=== PATIENT | female | born 1975 | race Caucasian/White ===

== ENCOUNTER 2020-08-30 08:50 | Emergency (ER) | payer OTHER, SELFPAY ==
[2020-08-30 08:54] VITALS: BP 145/93; PULSE 85; RESP 18; TEMP 37.1; O2SAT 96; BMI 39.4
--- NOTE | 2020-08-30 09:29 | W.ED.ABDPA2 ---
HPI - Abdominal Pain General: Chief Complaint: Abdominal Pain Stated Complaint: RIGHT SIDE PAIN Time Seen by Provider: 08/30/20 09:00 History of Present Illness: HPI narrative: Patient is a 45-year-old female who comes to the ED with abdominal pain. Symptoms started approximately 1 month ago. Patient says she is seen her primary care physician about abdominal pain and they scheduled her for an outpatient pelvic ultrasound and PCP was concerned about either appendix or ovary cause. Patient says her abdominal pain is located in the right lower quadrant of her abdomen. She says that for the past month its been episodic pain and she says it hurts worse at the end of the day. Last night she had more severe abdominal pain, but says now the pain has been constant ever since. She rates her pain currently a 5 out of 5. Patient says she took ibuprofen this morning before coming to the ED to help with her pain. She does endorse some nausea but has not had any episodes of emesis. She is having normal p.o. food and fluid intake and states that food does not cause any worsening of symptoms. Denies any fever, chills, cough, chest pain, shortness of breath, emesis, constipation, diarrhea, blood in stool, dysuria or hematuria. Associated Symptoms: Reports nausea; Denies chills, constipation, diarrhea, dysuria, fever(s), hematochezia, hematuria and vomiting Review of Systems Const: Denies: fever(s), chills or fatigue Eyes: Denies: change in vision or eye discomfort ENMT: Denies: throat pain, odynophagia, nasal discharge or nasal congestion Card: Denies: chest pain, palpitations, edema, swelling of feet/ankles, dyspnea on exertion or orthopnea Resp: Denies: dyspnea, productive cough or non-productive cough GI: Reports: abdominal pain and nausea; Denies: vomiting, diarrhea, constipation or hematochezia : Denies: flank pain, dysuria or hematuria Musc: Denies: neck pain, back pain or extremity swelling Skin/Breast: Denies: rash or new lesions Neuro: Denies: headache(s), numbness in extremities or weakness in extremities Physical Exam Const: COMMON NORMALS: no acute distress, patient oriented x3, healthy appearing and alert GENERAL APPEARANCE: cooperative and comfortable HENMT: COMMON NORMALS: normocephalic HEAD & SCALP: normocephalic MOUTH: Normal oral and palatal mucosa present THROAT: posterior oropharynx normal and uvula midline Neck/C-Spine: COMMON NORMALS: supple GENERAL: Yes normal visual inspection Resp: COMMON NORMALS: normal respiratory effort, No retractions, No use of accessory muscles and clear to auscultation bilaterally AUSCULTATION: clear to auscultation bilaterally Cardio: COMMON NORMALS: regular rate, regular rhythm, S1 normal heart sound present, S2 normal heart sound present, No gallops present (Cardio), No clicks present (Cardio), No murmurs present (Cardio) and Peripheral pulses 2+ throughout RATE: regular rate RHYTHM: regular rhythm HEART SOUNDS: S1 normal heart sound present and S2 normal heart sound present PERIPHERAL PULSES: Peripheral pulses 2+ throughout GI: COMMON NORMALS: Normal to inspection, nondistended, normoactive bowel sounds present, Soft to palpation and no masses PALPATION: Yes Soft to palpation and Yes Tenderness to palpation present (GI) Details: RLQ : COMMON NORMALS: Yes no CVA tenderness BLADDER/KIDNEY EXAM: Yes no CVA tenderness Back/Pelvis: COMMON NORMALS: no CVA tenderness Extremity: COMMON NORMALS: normal to inspection Neuro: COMMON NORMALS: patient oriented x3 SENSORIUM/ORIENTATION: Yes alert Skin: GENERAL SKIN EXAM: dry skin Course Vital Signs: Vital signs: Vital Signs Temperature 98.7 F 08/30/20 08:54 Pulse Rate 85 08/30/20 08:54 Respiratory Rate 18 08/30/20 08:54 Blood Pressure 145/93 08/30/20 08:54 Pulse Oximetry 96 08/30/20 08:54 MDM - Abdominal Pain MDM Narrative: Medical decision making narrative: Patient is a 45-year-old female comes to the ED with right lower quadrant abdominal pain. Patient has been having this pain for the past month. Exam shows a nontoxic and healthy-appearing 45-year-old female in no acute distress or pain. Vitals stable. All labs are unremarkable. CT of abdomen pelvis showed no acute findings. Patient diagnosed with abdominal pain discharged home. Her abdominal pain likely musculoskeletal and I discharged her home with a prescription for Medrol Dosepak to help with symptoms. She was told to follow-up with her PCP in 7 to 10 days for reevaluation. Return to ED precautions given. Patient understood and agree with plan. Lab Data: Attestation: I reviewed the patient's lab results. Labs: Lab Results 08/30/20 08/30/20 08/30/20 Range/Units 09:49 09:49 09:49 WBC 5.9 (4.0-10.0) 10^3/ uL RBC 4.23 (4.1-5.3) 10^6/u L Hgb 12.3 (11.5-15.3) g/dL Hct 38.2 (37.0-47.0) % MCV 90.3 (81-99) fL MCH 29.1 (28.0-34.0) pg MCHC 32.2 (30.0-36.0) g/dL RDW 13.2 (12.1-15.1) % Plt Count 215 (130-400) 10^3/c mm MPV 10.6 H (7.4-10.4) fL Neut % (Auto) 64.3 % Lymph % (Auto) 26.4 % [place] % (Auto) 7.2 % Eos % (Auto) 1.4 % Baso % (Auto) 0.5 % Neut # (Auto) 3.78 (1.8-7.7) 10^3/u L Lymph # (Auto) 1.6 (0.8-4.8) 10^3/u L [place] # (Auto) 0.4 (0.2-0.9) 10^3/u L Eos # (Auto) 0.1 (0.0-0.8) 10^3/u L Baso # (Auto) 0.0 (0.0-0.1) 10^3/u L Nucleated RBC % (a uto) 0 % Nucleated RBCs # 0.0 /100WBC Sodium 136 (136-145) mmol/L Potassium 4.3 (3.5-5.1) mmol/L Chloride 98 (98-107) mmol/L Carbon Dioxide 26 (22-29) mmol/L Anion Gap 16.3 (5-19) BUN 11 (6-20) mg/dL Creatinine 0.5 (0.5-0.9) mg/dL GFR Calculation 132.2 H (90-130) mL/min Glucose 111 (65-115) mg/dL Calculated Osmolal ity 282 L (285-295) mOsm/k g Calcium 8.5 (8.5-10.5) mg/dL Total Bilirubin 0.4 (0.15-1.2) mg/dL AST 14 (0-32) U/L ALT 12 (0-33) U/L Alkaline Phosphata se 63 (35-105) IU/L Total Protein 6.8 (6.6-8.7) g/dL Albumin 4.2 (3.5-5.2) g/dL Globulin 2.6 (1.3-4.6) g/dL Lipase 19 (13-60) U/L HCG, Qual Negative (Negative) Urine Color (Yellow) Urine Appearance (CLEAR) Urine pH (5-7) Ur Specific Gravit y (1.005-1.030) Urine Protein (Negative) Urine Glucose (UA) (Normal) Urine Ketones (Negative) Urine Blood (Negative) Urine Nitrate (Negative) Urine Bilirubin (Negative) Urine Urobilinogen (Negative) mg/dL Ur Leukocyte Bridgett ase (Negative) Urine RBC (0-2) /hpf Urine WBC (0-5) /hpf Ur Squamous Epith Cells (0-5) /hpf Amorphous Sediment Urine Bacteria (NONE) /hpf 08/30/20 Range/Units 10:09 WBC (4.0-10.0) 10^3/ uL RBC (4.1-5.3) 10^6/u L Hgb (11.5-15.3) g/dL Hct (37.0-47.0) % MCV (81-99) fL MCH (28.0-34.0) pg MCHC (30.0-36.0) g/dL RDW (12.1-15.1) % Plt Count (130-400) 10^3/c mm MPV (7.4-10.4) fL Neut % (Auto) % Lymph % (Auto) % [place] % (Auto) % Eos % (Auto) % Baso % (Auto) % Neut # (Auto) (1.8-7.7) 10^3/u L Lymph # (Auto) (0.8-4.8) 10^3/u L [place] # (Auto) (0.2-0.9) 10^3/u L Eos # (Auto) (0.0-0.8) 10^3/u L Baso # (Auto) (0.0-0.1) 10^3/u L Nucleated RBC % (a uto) % Nucleated RBCs # /100WBC Sodium (136-145) mmol/L Potassium (3.5-5.1) mmol/L Chloride (98-107) mmol/L Carbon Dioxide (22-29) mmol/L Anion Gap (5-19) BUN (6-20) mg/dL Creatinine (0.5-0.9) mg/dL GFR Calculation (90-130) mL/min Glucose (65-115) mg/dL Calculated Osmolal ity (285-295) mOsm/k g Calcium (8.5-10.5) mg/dL Total Bilirubin (0.15-1.2) mg/dL AST (0-32) U/L ALT (0-33) U/L Alkaline Phosphata se (35-105) IU/L Total Protein (6.6-8.7) g/dL Albumin (3.5-5.2) g/dL Globulin (1.3-4.6) g/dL Lipase (13-60) U/L HCG, Qual (Negative) Urine Color Yellow (Yellow) Urine Appearance Clear (CLEAR) Urine pH 6 (5-7) Ur Specific Gravit y 1.015 (1.005-1.030) Urine Protein Neg (Negative) Urine Glucose (UA) Norm (Normal) Urine Ketones Negative (Negative) Urine Blood Neg (Negative) Urine Nitrate Negative (Negative) Urine Bilirubin Neg (Negative) Urine Urobilinogen Norm (Negative) mg/dL Ur Leukocyte Bridgett ase Negative (Negative) Urine RBC None (0-2) /hpf Urine WBC Rare (0-5) /hpf Ur Squamous Epith Cells 0-4 H (0-5) /hpf Amorphous Sediment Not Reportable Urine Bacteria None (NONE) /hpf Imaging Data ^: CT Abd/Pel: Attestation: I personally reviewed and interpreted this imaging study as follows: Radiologist's impression: [address] [address] [address] Scan Report Signed Patient: Ruby Gooden Unit #: [id number] : 1975 Age/Sex: 45 / F ADM Date: 08/30/20 Loc: ER Room/Bed: Attending Dr: Ordering Provider/Ordering MD: Thor Evans Date of Service: 08/30/20 Procedure(s): CT abdomen pelvis w con* [id number] Accession Number(s): [id number] Report Number: [id number] WS: [id number] CT ABDOMEN PELVIS TECHNIQUE: Contrast-enhanced CT of the abdomen and pelvis with coronal and sagittal reformatted images. CLINICAL INFORMATION: RLQ abdominal pain COMPARISON: None. DLP: [id number] scans at [facility] use at least one of these dose optimization techniques: automated exposure control; mA and/or kV adjustment per patient size (includes targeted exams where dose is matched to clinical indication); or iterative reconstruction. FINDINGS: Prior hysterectomy. Diffuse fatty infiltration of the liver. Cholelithiasis. No gallbladder wall thickening or pericholecystic fluid. Normal GE junction. Normal portal vein and splenic vein. Normal spleen. Lung bases are well aerated. Pancreas appears normal. Adrenal glands are normal. Normal renal parenchymal enhancement. No hydronephrosis. Normal caliber abdominal aorta. Normal appendix in the right lower quadrant. No evidence of acute appendicitis. A few sigmoid diverticuli. No evidence of acute diverticulitis. No evidence of high-grade small or large bowel obstruction. No bowel distention. Tiny fat-containing umbilical hernia. Normal caliber abdominal aorta. No abdominal or pelvic lymphadenopathy. Pelvic phleboliths. No free fluid in the pelvis. No inguinal lymphadenopathy. Slight anterolisthesis L5 on S1 with chronic bilateral pars defects. CT/CT abdomen pelvis w con* [id number] IMPRESSION: 1. Normal appendix in the right lower quadrant. No evidence of acute appendicitis. 2. Sigmoid diverticulosis. No evidence of acute diverticulitis. 3. Cholelithiasis. 4. Small esophageal hiatal hernia. 5. Normal renal parenchymal enhancement. No hydronephrosis. 6. Slight anterolisthesis L5 on S1 with chronic bilateral pars defects. 7. No other significant findings. Dictated By: Bulmaro Mac MD Signed By: Bulmaro Mac MD Signed Date/Time: 08/30/201107 DD/ 110 Discharge Plan Discharge Patient Disposition: Home Clinical Impression: Abdominal pain Qualifiers: Abdominal location: right lower quadrant Qualified Code(s): R10.31 - Right lower quadrant pain Condition: Stable Prescriptions: New Medrol (Rai) 4 mg tablets,dose pack See Rx Instructions .ROUTE .COMPLEX Qty: 21 RF: 0 Discharge Orders: Discharge ED (Routine); Ordered 08/30/20 Ordered By: Thor Evans Referrals: Anna Marie Mtz APN [Primary Care Provider] - Discharge Diet: Regular Discharge Activity: Increase activity as tolerated Patient Instructions: Abdominal Pain (ED) Activity Restrictions/Additional Instructions: Follow-up with medical provider as directed in 7 to 10 days for evaluation. Take medications as prescribed. You can also take [id number] ibuprofen up to 800 mg dose every 8 hours as needed for pain. Apply cold pack and stretch core muscles daily. Return to the ER or your medical provider if condition worsens. Please read and understand discharge instructions. Thank you for choosing [facility] for your healthcare needs today. Please realize this is an emergency room and that we are providing you with a medical screening exam and this may not be complete and all inclusive of all the testing and or work up that you may need to determine your ailment or severity of your illness. It is very important that you follow up as instructed or that you return to the Emergency Department should you have concerns or if your condition changes or worsens in any way. Coding Level of Care Code ED Equal Employment Opportunity Officer for [employer] Exam Comprehensive
--- NOTE | 2020-08-30 09:38 | CT_ITS ---
WS: [id number] CT ABDOMEN PELVIS TECHNIQUE: Contrast-enhanced CT of the abdomen and pelvis with coronal and sagittal reformatted image s. CLINICAL INFORMATION: RLQ abdominal pain COMPARISON: None. DLP: [address] scans at [facility] use at least one of these dose optimization techniques: automat ed exposure control; mA and/or kV adjustment per patient size (includes targeted exams where dose is matched to clinical indication); or iterative reconstruction. FINDINGS: Prior hysterectomy. Diffuse fatty infiltration of the liver. Cholelithiasis. No gallbladder wall thic kening or pericholecystic fluid. Normal GE junction. Normal portal vein and splenic vein. Normal sple en. Lung bases are well aerated. Pancreas appears normal. Adrenal glands are normal. Normal renal par enchymal enhancement. No hydronephrosis. Normal caliber abdominal aorta. Normal appendix in the right lower quadrant. No evidence of acute appendicitis. A few sigmoid diverti culi. No evidence of acute diverticulitis. No evidence of high-grade small or large bowel obstruction . No bowel distention. Tiny fat-containing umbilical hernia. Normal caliber abdominal aorta. No abdom inal or pelvic lymphadenopathy. Pelvic phleboliths. No free fluid in the pelvis. No inguinal lymphade nopathy. Slight anterolisthesis L5 on S1 with chronic bilateral pars defects. CT/CT abdomen pelvis w con* [id number] IMPRESSION: 1. Normal appendix in the right lower quadrant. No evidence of acute appendici tis. 2. Sigmoid diverticulosis. No evidence of acute diverticulitis. 3. Cholelithiasis. 4. Small esophageal hiatal hernia. 5. Normal renal parenchymal enhancement. No hydronephrosis. 6. Slight anterolisthesis L5 on S1 with chronic bilateral pars defects. 7. No other significant findings.
[2020-08-30 09:59] LABS: Basophils % 0.5 %; Eosinophils # 0.1 10^3/uL (0.0-0.8); Eosinophils % 1.4 %; Hematocrit 38.2 % (37.0-47.0); Hemoglobin 12.3 g/dL (11.5-15.3); Lymphocytes # 1.6 10^3/uL (0.8-4.8); Lymphocytes % 26.4 %; Mean Corpuscular HGB Conc 32.2 g/dL (30.0-36.0); Mean Corpuscular Hemoglobin 29.1 pg (28.0-34.0); Mean Corpuscular Volume 90.3 fL (81-99); Mean Platelet Volume 10.6 fL (7.4-10.4); Monocytes # 0.4 10^3/uL (0.2-0.9); Monocytes % 7.2 %; Neutrophils # 3.78 10^3/uL (1.8-7.7); Neutrophils % 64.3 %; Nucleated Red Blood Cells % 0 %; Platelet Count 215 10^3/cmm (130-400); Red Blood Count 4.23 10^6/uL (4.1-5.3); Red Cell Distribution Width 13.2 % (12.1-15.1); White Blood Count 5.9 10^3/uL (4.0-10.0)
[2020-08-30 10:10] LABS: HCG, Serum Qual Negative (Negative)
[2020-08-30] MEDS: sodium chloride 0.9% 1,000 ML 999 ML IV (10:10)
[2020-08-30 10:16] LABS: Alanine Aminotransferase 12 U/L (0-33); Albumin Level 4.2 g/dL (3.5-5.2); Alkaline Phosphatase 63 IU/L (35-105); Anion Gap 16.3 (5-19); Aspartate Amino Transferase 14 U/L (0-32); Blood Urea Nitrogen 11 mg/dL (6-20); Calcium 8.5 mg/dL (8.5-10.5); Carbon Dioxide 26 mmol/L (22-29); Chloride 98 mmol/L (98-107); Globulin 2.6 g/dL (1.3-4.6); Glomerular Filtration Rate 132.2 mL/min (90-130); Glucose 111 mg/dL (65-115); Lipase 19 U/L (13-60); Osmolality Calculated 282 mOsm/kg (285-295); Potassium 4.3 mmol/L (3.5-5.1); Sodium 136 mmol/L (136-145); Total Bilirubin 0.4 mg/dL (0.15-1.2); Total Protein 6.8 g/dL (6.6-8.7)
[2020-08-30 10:29] LABS: Bilirubin Urine Neg (Negative); Blood Urine Neg (Negative); Glucose Urine UA Norm (Normal); Ketones Urine Negative (Negative); Leukocyte Esterase Urine Negative (Negative); Nitrate Urine Negative (Negative); Protein Urine Neg (Negative); Specific Gravity, Urine 1.015 (1.005-1.030); Squamous Epithelial Cell Urine 0-4 /hpf (0-5); Urine Appearance Clear (CLEAR); Urine Color Yellow (Yellow); Urobilinogen Urine Norm (Negative); WBC Urine RARE /hpf (0-5); pH Urine 6 (5-7)
[2020-08-30] MEDS: ondansetron 2 mg/ML SDV 2 mL 4 MG IVP (11:24)
[2020-08-30] MEDS: morphine 4 mg/mL SDV 1 mL 2 MG IVP (11:26)
== END 2020-08-30 12:38 | disposition home or self-care (01) ==
PROVIDERS: Emergency Provider Physician Assistant; PCP Nurse Practitioner Family
DX: R10.31 Right lower quadrant pain (principal)
CPT/HCPCS: 74177; 80053; 81001; 83690; 84703; 85025; 96361; 96374; 96375; 99284; J2270; J2405; J7030; Q9967

== ENCOUNTER 2020-09-11 09:11 | Outpatient (CLI) | payer OTHER, SELFPAY ==
--- NOTE | 2020-09-11 09:18 | US_ITS ---
WS: [id number] ULTRASOUND PELVIS TECHNIQUE: Transabdominal and transvaginal. ULTRASOUND PELVIS TECHNIQUE: Transabdominal. CLINICAL INFORMATION: ABDOMINAL PAIN/R GROIN PAIN LMP: : No. COMPARISON: None. FINDINGS: Prior hysterectomy. Adnexa: Normal right ovary. Left ovary not visualized. No adnexal masses. Right ovary size: 1.8 cm x 1.7 cm x 1.9 cm. Right ovary volume: 3.1 ccm3. Free fluid: None. Other findings: None. US/US pelvic with transvaginal IMPRESSION: 1. Prior hysterectomy. 2. Normal right ovary. Left ovary not visualized. 3. No free fluid in the cul-de-sac.
== END 2020-09-11 09:12 | disposition home or self-care (01) ==
PROVIDERS: PCP Nurse Practitioner Family; Visit Provider Nurse Practitioner Family
DX: R10.9 Unspecified abdominal pain (principal); R10.2 Pelvic and perineal pain; Z90.710 Acquired absence of both cervix and uterus
CPT/HCPCS: 76830; 76856

== ENCOUNTER → 2020-10-26 09:20 | Outpatient (BNVA) | payer OTHER, SELFPAY | PROVIDERS: PCP Nurse Practitioner Family; Visit Provider Nurse Practitioner Women's Health | DX: Z12.4 Encounter for screening for malignant neoplasm of cervix (principal); N95.1 Menopausal and female climacteric states; R10.2 Pelvic and perineal pain | CPT/HCPCS: 88175 ==

== ENCOUNTER → 2022-11-27 15:20 | Outpatient (BNVA) | payer OTHER, SELFPAY | PROVIDERS: PCP Nurse Practitioner Family; Visit Provider Nurse Practitioner Family | DX: R30.0 Dysuria (principal); R10.32 Left lower quadrant pain; K59.00 Constipation, unspecified | CPT/HCPCS: 74018; 80053; 81000; 85025 ==